=== PATIENT | male | born 1990 | race Two or more races ===

== ENCOUNTER 2017-08-10 23:43 | Emergency (ER) | payer OTHER ==
[2017-08-10 23:54] VITALS: RESP 16
--- NOTE | 2017-08-10 23:59 | EDPHY ---
H & P Stated Complaint: R hand crush injury HPI/ROS: HPI CHIEF COMPLAINT: Right middle finger injury HISTORY OF PRESENT ILLNESS: This patient is a 26-year-old male, presents emergency room after he sustained a crush injury to his right middle finger. 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 He was picking up a piece of metal. 60 lb. It slipped and fell on his middle finger. He immediately had pain. He now has blood at the end of his finger. Nor she denies hand pain. Pain is located to the middle finger right hand. He is right-handed. Tetanus shot is up-to-date. This injury happened at work. Past Medical History: No medical history Past Surgical History: No surgical history Social History: Denies daily use of drugs alcohol tobacco products. 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 Family History: Noncontributory ROS REVIEW OF SYSTEMS: A comprehensive 10 point review of systems is otherwise negative aside from elements mentioned in the history of present illness. Exam Constitutional triage nursing summary reviewed, vital signs reviewed, awake/ alert. Eyes normal conjunctivae and sclera, EOMI, PERRLA. HENT normal inspection, atraumatic, moist mucus membranes, no epistaxis, neck supple/ no meningismus, no raccoon eyes. Respiratory clear to auscultation bilaterally, normal breath sounds, no respiratory distress, no wheezing. Cardiovascular rate normal, regular rhythm, no murmur, no edema, distal pulses normal. Gastrointestinal soft, non-tender, no rebound, no guarding, normal bowel sounds, no distension, no pulsatile mass. Genitourinary no CVA tenderness. Musculoskeletal right hand: Good radial pulse. Good cap refill. Full range of motion of the right hand. He does have mild tender palpation swelling to the distal aspect of the right middle finger. Blood present. No obvious arterial injury or tendon injury but full range of motion. Good cap refill. Sensation intact. no midline vertebral tenderness, full range of motion, no calf swelling, no tenderness of extremities, no meningismus, good pulses, neurovascularly intact. Skin pink, warm, & dry, no rash, skin atraumatic. Neurologic awake, alert and oriented x 3, AAOx3, moves all 4 extremities equally, motor intact, sensory intact, CN II-XII intact, normal cerebellar, normal vision, normal speech. Psychiatric normal mood/affect. Heme/Lymph/Immune no lymphadenopathy. Differential Diagnosis: Includes but is not limited to in a particular order crush injury, finger fracture, soft tissue injury, laceration Medical Decision Making: Plan for this patient x-ray middle finger, clean his wound. His tetanus shot is up-to-date. Evaluate wound after cleaning. Re-evaluation: X-ray reviewed of the middle digit right hand. This shows a tuft fracture distal aspect. The wound is been clean. There is no evidence of finger laceration. However there is a subungual hematoma that is draining. No need to tract needed. Patient be placed in a finger splint. X-ray reviewed shows tuft fracture. Patient understands follow up with Hand surgery. Keep protected. Clean. Watch for infection. Return to the ER for worsening symptoms questions or concerns. He understands Source: Patient - Personal History Current Tetanus/Diphtheria Vaccine: Unsure - Medical/Surgical History Hx Asthma: No Hx Chronic Respiratory Disease: No Hx Diabetes: No Hx Cardiac Disease: No Hx Renal Disease: No Hx Cirrhosis: No Hx Alcoholism: No Hx HIV/AIDS: No Hx Splenectomy or Spleen Trauma: No Other PMH: PMHx: denies. PSHx: denies - Social History Smoking Status: Current every day smoker Constitutional: Initial Vital Signs Temperature (C) 36.9 C 08/10/17 23:46 Heart Rate 69 08/10/17 23:46 Respiratory Rate 16 08/10/17 23:46 Blood Pressure 147/105 H 08/10/17 23:46 O2 Sat (%) 95 08/10/17 23:46 O2 Delivery Mode Room Air Allergies/Adverse Reactions: No Known Allergies Allergy (Unverified 08/10/17 23:46) Home Medications: Medication Instructions Recorded NK [No Known Home Meds] 08/10/17 Medical Decision Making - Diagnostics Imaging Results: Imaging Impressions Finger X-Ray 08/11/17 00:06 Impression: Nondisplaced distal tuft fracture. Departure - Departure Disposition: Home, Routine, Self-Care Clinical Impression: Finger contusion Qualifiers: Encounter type: initial encounter Finger: middle finger Damage to nail status: with damage Laterality: right Qualified Code(s): S60.131A - Contusion of right middle finger with damage to nail, initial encounter Finger fracture, right Qualifiers: Encounter type: initial encounter Finger: middle finger Fracture type: closed Phalanx: distal Fracture alignment: nondisplaced Qualified Code(s): S62.662A - Nondisplaced fracture of distal phalanx of right middle finger, initial encounter for closed fracture Condition: Good Instructions: Subungual Hematoma (ED), Finger Fracture (ED), Contusion in Adults (ED), Hematoma (ED) Additional Instructions: 1. Stay in her splint for comfort and protection. 2. Watch for infection. If this is worsening swelling, redness, pus, drainage. 3. Return to the emergency room if you have worsening symptoms questions or concerns. Referrals: NONE *PRIMARY CARE P,. [Primary Care Provider] - As per Instructions Tyler Sutton MD [Medical Doctor] - As per Instructions
[2017-08-11 01:21] VITALS: BP 141/76; PULSE 67; TEMP 98.2; O2SAT 97
== END 2017-08-11 01:20 | disposition home or self-care (01) ==
DX: S62.662A Nondisplaced fracture of distal phalanx of right middle finger, initial encounter for closed fracture (principal); S60.131A Contusion of right middle finger with damage to nail, initial encounter; F17.200 Nicotine dependence, unspecified, uncomplicated; W20.8XXA Other cause of strike by thrown, projected or falling object, initial encounter; Y92.69 Other specified industrial and construction area as the place of occurrence of the external cause; Y99.0 Civilian activity done for income or pay; Y93.89 Activity, other specified
CPT/HCPCS: L3925

== ENCOUNTER 2017-08-12 13:25 | Emergency (ER) | payer OTHER ==
[2017-08-12 13:38] VITALS: BP 115/84; PULSE 71; RESP 16; TEMP 98.6; O2SAT 94
--- NOTE | 2017-08-12 15:02 | EDPHY ---
H & P Time Seen by Provider: 08/12/17 14:09 HPI/ROS: CHIEF COMPLAINT: Subungual hematoma right 3rd finger HISTORY OF PRESENT ILLNESS: 26-year-old male presents to the emergency department with injury to his right middle finger. The patient was seen in the emergency department 2 days ago with a crush injury. He was diagnosed with tuft fracture. He has had increased pain in his finger especially over last 24 hours. He describes it as a throbbing sensation. He is concerned about the blood underneath his fingernail. Denies injury to the other fingers. He believes his tetanus last tetanus shot was within the last 5 years. ROS: Denies numbness or tingling to his fingers, retained foreign body. Past Medical/Surgical History: Attention deficit hyperactivity disorder, marijuana use Social History: Single Smoking Status: Current every day smoker Physical Exam: On examination the patient has a subungual hematoma noted to the right 3rd finger. Very tender to palpate. He has no drainage from the nail. He is tender to palpate especially the very distal tip of the finger. The other fingers do not appear injured. Normal sensation to light touch with normal 2 point discrimination. Constitutional: Initial Vital Signs Temperature (C) 37.0 C 08/12/17 13:33 Heart Rate 71 08/12/17 13:33 Respiratory Rate 16 08/12/17 13:33 Blood Pressure 115/84 H 08/12/17 13:33 O2 Sat (%) 94 08/12/17 13:33 O2 Delivery Mode Room Air Allergies/Adverse Reactions: No Known Allergies Allergy (Verified 08/12/17 13:38) Home Medications: Medication Instructions Recorded Cephalexin [Keflex] 500 mg PO QID #28 cap 08/12/17 MDM/Departure - MDM Procedures: Verbal consent was obtained from the patient. The right 3rd finger was anesthetized using digital block using 1% lidocaine without epinephrine 0.5% bupivacaine without epinephrine. Electrocautery was used to drain the subungual hematoma. Blood was expressed. No purulent discharge. The procedure was performed by myself. ED Course/Re-evaluation: 26-year-old male presents with subungual hematoma. The patient is requesting drainage. His x-rays were reviewed from his previous visit and the patient has a small nondisplaced tuft fracture of the right middle finger. The nail was drained using electrocautery. Patient had relief. Patient was placed in [place] splint and given orthopedic hand surgical referral. Patient was also started on oral Keflex since he has a tuft fracture and electrocautery was used to drain the subungual hematoma. - Depart Disposition: Home, Routine, Self-Care Clinical Impression: Subungual hematoma of right middle finger Condition: Good Instructions: Subungual Hematoma (ED), Finger Fracture (ED), Acute Wounds (ED) Additional Instructions: Keflex as directed for 1 week. Splint for comfort and support. Ibuprofen 600 mg every 8 hours as needed for pain. Return to the emergency department if he develops increased redness, swelling, increasing pain, or if you feel worse in any way. Prescriptions: Cephalexin [Keflex] 500 mg PO QID #28 cap Referrals: Tyler Sutton MD [Medical Doctor] - 2-3 days without fail (Orthopedic hand surgeon on-call)
== END 2017-08-12 15:36 | disposition home or self-care (01) ==
PROC: 0H9QXZZ Drainage of Finger Nail, External Approach (ICD-10-PCS; principal; 2017-08-12)
DX: S60.031D Contusion of right middle finger without damage to nail, subsequent encounter (principal); F17.200 Nicotine dependence, unspecified, uncomplicated; W23.1XXD Caught, crushed, jammed, or pinched between stationary objects, subsequent encounter